=== PATIENT | female | born 1970 | race Caucasian/White ===

== ENCOUNTER → 2018-07-25 17:01 | Outpatient (CLI) | payer BC | END | disposition home or self-care (01) | LOC: D.MAMMO 11:30 | PROVIDERS: ATTEND Family Medicine | DX: Z12.31 Encounter for screening mammogram for malignant neoplasm of breast (principal) ==

== ENCOUNTER → 2018-08-13 07:47 | Outpatient (CLI) | payer MEDICAID | END | disposition home or self-care (01) | LOC: D.RAD 08-12 08:30 | PROVIDERS: ATTEND Family Medicine | DX: K21.9 Gastro-esophageal reflux disease without esophagitis (principal) ==

== ENCOUNTER 2020-07-23 15:56 | Outpatient (CLI) | payer MEDICARE | END 2020-07-23 23:59 | disposition home or self-care (01) | LOC: D.MAMMO 15:56 | PROVIDERS: ATTEND Family Medicine | DX: Z12.31 Encounter for screening mammogram for malignant neoplasm of breast (principal) ==